=== PATIENT | male | born 1990 | race Caucasian/White ===

== ENCOUNTER → 2020-02-07 | Outpatient (CLI) | payer OTHER ==
[2020-02-07 14:16] LABS: HEMATOCRIT 46.6 % (42.0-52.0); HEMOGLOBIN 15.4 g/dl (13.5-17.5); MEAN CORPUSCULAR HEMOGLOBIN 29.4 pg (27.0-33.0); MEAN CORPUSCULAR VOLUME 89.1 fl (80.0-96.0); PLATELET COUNT, AUTOMATED 330 10^3/uL (150-450); RED BLOOD COUNT 5.23 10^6/uL (4.30-6.10); WHITE BLOOD COUNT 11.9 10^3/uL (4.0-10.0)
[2020-02-07 14:47] LABS: ATYPICAL LYMPH 6 % (0-5); EOSINOPHILS 1 % (0-3); LYMPHOCYTES 30 % (16-44); MONOCYTES 11 % (0-5); NEUTROPHILS 51 % (28-66); PLATELET ESTIMATE NORMAL (NORMAL)
[2020-02-07 18:49] LABS: ALBUMIN 4.1 GM/DL (3.2-5.2); ALT/SGPT 38 U/L (12-78); BILIRUBIN,TOTAL 0.4 MG/DL (0.2-1.0); BLOOD UREA NITROGEN 12 MG/DL (7-18); CALCIUM LEVEL 9.3 MG/DL (8.5-10.1); CARBON DIOXIDE LEVEL 28 MEQ/L (21-32); CHLORIDE LEVEL 105 MEQ/L (98-107); CREATININE FOR GFR 1.02 MG/DL (0.70-1.30); FREE T4 0.98 NG/DL (0.76-1.46); GLOMERULAR FILTRATION RATE > 60.0 (>60); GLUCOSE, FASTING 84 MG/DL (70-100); POTASSIUM SERUM 4.4 MEQ/L (3.5-5.1); SODIUM LEVEL 139 MEQ/L (136-145); THYROID STIMULATING HORMONE 0.844 uIU/ML (0.358-3.740); TOTAL PROTEIN 7.5 GM/DL (6.4-8.2)
== END ==
LOC: M LAB 12:33
PROVIDERS: ATTEND Internal Medicine Gastroenterology
DX: R19.7 Diarrhea, unspecified (principal)

== ENCOUNTER → 2020-02-11 | Outpatient (REF) | payer OTHER | LOC: M LAB REF 09:26 | PROVIDERS: ATTEND Internal Medicine Gastroenterology | DX: R19.7 Diarrhea, unspecified (principal) ==

== ENCOUNTER → 2020-02-16 | Outpatient (CLI) | payer OTHER ==
[~2020-02-16] MED LIST: E-Z-PAQUE 96% w/w SUSP 176GM BTL As Ordered ONE
--- NOTE | 2020-02-16 15:22 | REP ---
INDICATION: DIARRHEA. COMPARISON: None TECHNIQUE: This procedure was performed by Hoda Metcalf [facility], under the direct supervision of Dr. Muhammad. Images were reviewed with Dr. Muhammad prior to dictation. Liquid barium was administered and the barium column was followed through the small bowel to the level of the terminal ileum. FINDINGS: The office clerk routine film shows no organomegaly or pathological masses. The intestinal gas pattern is unremarkable. Small bowel transit time is approximately 40 minutes. During fluoroscopy gentle palpation shows all loops are freely movable and pliable. There is no fixed angulated loops. The small bowel mucosal pattern is normal in course and caliber. There is no transition to suggest a partial small bowel obstruction. Spot filming of the terminal ileum shows it to be unremarkable. IMPRESSION: 1. Unremarkable small bowel follow-through with a transit time of 40 minutes. 0.4 minutes of fluoroscopy time was utilized for this procedure. Some fluoroscopic images are performed with last image hold technology. These images require no additional radiation. <Electronically signed by Hoda Metcalf > 02/16/20 1302 <Electronically signed by Henry Muhammad > 02/16/20 [id number]
== END ==
LOC: M RAD 07:38
PROVIDERS: ATTEND Internal Medicine Gastroenterology
DX: R19.7 Diarrhea, unspecified (principal)

== ENCOUNTER → 2020-03-10 | Outpatient (CLI) | payer OTHER | LOC: M LABSMTC 09:20 | PROVIDERS: ATTEND Anesthesiology | DX: Z11.59 Encounter for screening for other viral diseases (principal) ==

== ENCOUNTER 2020-03-15 08:16 | Day surgery (SDC) | payer OTHER ==
[~2020-03-15] VITALS: Ht 188 cm; Wt 108.0 kg
[~2020-03-15 08:16] MED LIST changes: -E-Z-PAQUE 96% w/w SUSP 176GM BTL As Ordered ONE; +NS 1,000 ML IV ONE
[2020-03-15] MEDS ORDERED: propofoL 200 MG/20 ML VIAL As Ordered ONE ×2 (08:28→10:18)
[2020-03-15] MEDS ORDERED: LIDOCAINE 2% 100MG/5ML SDV (FOR ANES.) As Ordered ONE (09:02)
--- NOTE | 2020-03-15 10:29 | ROOR ---
Patient Name: Eriberto Song Procedure Date: 03/15/2020 10:08 AM Date of : 1990 Age: 29 Room: [facility] Gender: Male Note Status: Finalized Procedure: Colonoscopy Indications: Clinically significant diarrhea of unexplained origin Providers: Jourdan FOSTER MD Referring MD: 1. No Referring Physician 1. No Referring Physician, Admin. Requesting Provider: Medicines: Monitored Anesthesia Care Complications: No immediate complications. Procedure: Pre-Anesthesia Assessment: - The heart rate, respiratory rate, oxygen saturations, blood pressure, adequacy of pulmonary ventilation, and response to care were monitored throughout the procedure. The Colonoscope was introduced through the anus and advanced to 15 cm into the ileum. The colonoscopy was performed without difficulty. The patient tolerated the procedure well. The quality of the bowel preparation was good. Findings: The perianal and digital rectal examinations were normal. The colon (entire examined portion) appeared normal. The terminal ileum appeared normal. Small Internal Hemorrhoids. Biopsies for histology were taken with a cold forceps for evaluation of microscopic colitis. Impression: - The entire examined colon is normal. - The examined portion of the ileum was normal. - Small Internal Hemorrhoids. - Biopsies were taken with a cold forceps for evaluation of microscopic colitis. - (Irritable Bowel Syndrome/IBS suspected.) Recommendation: - Use fiber, for example Citrucel, Fibercon, Konsyl or Metamucil. - Lactose free diet. - Use Bentyl (dicyclomine) 20 mg PO BID 30 min AC. PRN - (the script was sent to your pharmacy on file) Procedure Code(s): --- Professional --- 18881, Colonoscopy, flexible; with biopsy, single or multiple Diagnosis Code(s): --- Professional --- R19.7, Diarrhea, unspecified CPT copyright 2019 [employer]. All rights reserved. The codes documented in this report are preliminary and upon club manager review may be revised to meet current compliance requirements. Jourdan Foster MD Jourdan FOSTER MD 03/15/2020 10:29:27 AM Electronically signed by Jourdan FOSTER MD Number of Addenda: 0 Note Initiated On: 03/15/2020 10:08 AM Estimated Blood Loss: Estimated blood loss: none.
[2020-03-15 10:54] VITALS: BP 133/84
== END 2020-03-15 10:54 | disposition home or self-care (01) ==
LOC: M OPP 08:16
PROVIDERS: ATTEND Internal Medicine Gastroenterology
DX: K64.8 Other hemorrhoids (principal); R19.7 Diarrhea, unspecified; F17.210 Nicotine dependence, cigarettes, uncomplicated